=== PATIENT | male | born 1970 | race African-American/Black ===

== ENCOUNTER → 2017-03-22 | Outpatient (CLI) | payer OTHER ==
[2015-05-13 10:34] VITALS: BP 186/106
[2017-03-22 10:00] LABS: BASOPHILS % (AUTO) 0.7 % (0.2-1.0); EOSINOPHILS # (AUTO) 0.1 x10^3/uL (0.0-0.2); EOSINOPHILS % (AUTO) 2.5 % (0.9-2.9); HEMOGLOBIN 13.4 g/dL (13.5-18.0); LYMPHOCYTES # (AUTO) 1.3 X10^3/uL (1.3-2.9); LYMPHOCYTES % (AUTO) 35.2 % (21.0-51.0); MEAN CORPUSCULAR HEMOGLOBIN 31.1 pg (27.0-34.0); MEAN CORPUSCULAR HGB CONC 33.5 g/dL (33.0-35.0); MEAN CORPUSCULAR VOLUME 92.9 fL (80.0-100.0); MEAN PLATELET VOLUME 9.3 fL (7.4-11.0); MONOCYTES # (AUTO) 0.3 x10^3/uL (0.3-0.8); MONOCYTES % (AUTO) 9.3 % (0.0-13.0); NEUTROPHILS # (AUTO) 1.9 x10^3/uL (2.2-4.8); NEUTROPHILS % (AUTO) 52.3 % (42.0-75.0); PLATELET COUNT 167 X10^3/uL (150.0-450.0); RED BLOOD COUNT 4.31 X10^6/uL (4.7-6.0); RED CELL DISTRIBUTION WIDTH 12.5 % (11.6-16.5); WHITE BLOOD COUNT 3.6 X10^3/uL (3.6-10.0)
[2017-03-22 10:12] LABS: ALANINE AMINOTRANSFERASE 48 Units/L (12-78); ALBUMIN 3.5 g/dL (3.4-5.0); ALKALINE PHOSPHATASE 65 Units/L (46-116); ASPARTATE AMINO TRANSFERASE 33 Units/L (15-37); BLOOD UREA NITROGEN 17 mg/dL (7-18); CARBON DIOXIDE 29.1 mmol/L (21-32); CHLORIDE 109 mmol/L (98-107); COR NA(FOR HYPERGLY) 147 mmol/L (136-145); CREATININE 1.18 mg/dL (0.70-1.30); GLUCOSE 137 mg/dL (65-99); SODIUM 146 mmol/L (136-145); TOTAL PROTEIN 6.8 g/dL (6.4-8.2); eGFR BLACK RACES > 60 (>60); eGFR NON BLACK RACES > 60 (>60)
--- NOTE | 2017-03-22 10:37 | RAD ---
HISTORY: Preop foot surgery Study: Chest two views Comparison: July 21, 2015 Findings: The trachea is midline. The cardiac silhouette is unremarkable. 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 The lungs are clear without focal infiltrate or effusion. The bony thorax is unremarkable. IMPRESSION: 1. No acute cardiopulmonary disease. Reported By:
== END ==
LOC: LAB 09:40
PROVIDERS: ATTEND Podiatrist
DX: Z01.812 Encounter for preprocedural laboratory examination (principal); Z01.810 Encounter for preprocedural cardiovascular examination; Z01.811 Encounter for preprocedural respiratory examination
CPT/HCPCS: 36415; 71020; 80053; 85025; 93005; 93010

== ENCOUNTER 2017-12-30 20:58 | Emergency (ER) | payer OTHER ==
[2017-12-30 21:08] VITALS: BMI 30.1
[2017-12-30] MEDS ORDERED: LEVSIN/MAALOX/LIDOC VISC PO ONE (21:26)
[2017-12-30] MEDS ORDERED: LEVSIN/MAALOX/LIDOC VISC ONE (21:26)
[2017-12-30 21:36] LABS: BASOPHILS # (AUTO) 0.1 X10^3/uL (0.0-0.1); BASOPHILS % (AUTO) 1.2 % (0.2-1.0); EOSINOPHILS # (AUTO) 0.1 x10^3/uL (0.0-0.2); EOSINOPHILS % (AUTO) 2.5 % (0.9-2.9); HEMATOCRIT 39.9 % (42.0-54.0); HEMOGLOBIN 13.6 g/dL (13.5-18.0); LYMPHOCYTES # (AUTO) 2.3 X10^3/uL (1.3-2.9); LYMPHOCYTES % (AUTO) 43.6 % (21.0-51.0); MEAN CORPUSCULAR HEMOGLOBIN 31.8 pg (27.0-34.0); MEAN CORPUSCULAR HGB CONC 34.1 g/dL (33.0-35.0); MEAN PLATELET VOLUME 9.5 fL (7.4-11.0); MONOCYTES # (AUTO) 0.6 x10^3/uL (0.3-0.8); MONOCYTES % (AUTO) 11.4 % (0.0-13.0); NEUTROPHILS # (AUTO) 2.2 x10^3/uL (2.2-4.8); NEUTROPHILS % (AUTO) 41.3 % (42.0-75.0); PLATELET COUNT 172 X10^3/uL (150.0-450.0); RED BLOOD COUNT 4.29 X10^6/uL (4.7-6.0); RED CELL DISTRIBUTION WIDTH 13.2 % (11.6-16.5); WHITE BLOOD COUNT 5.3 X10^3/uL (3.6-10.0)
--- NOTE | 2017-12-30 21:36 | DR.GENAD ---
HPI - PCP Primary Care Physician: nfd - HPI Comment HPI Comment: symptoms started shortly after eating about 2 1/2 hrs ago - Complaint/Symptoms Chief Complaint:: pt states" I was eating a steak and shrimp and i started burning right here and it comes and goes" pt pointing to lt chest Self Treatment fo Chief Complaint: has had same symptoms before, has taken PeptoBismol without relief - Nurses notes reviewed Nurses Notes Review: Yes - Source History Provided: Patient - Mode of Arrival Mode of Arrival: Ambulatory - Timing Onset of Chief Complaint: 12/30/17 PMH - PMH Past Medical History: Yes (heart surgery as a baby) Past Medical History: Anemia, Angina, Coronary Artery Disease, Dyslipidemia, GERD, Hypertension Past Surgical History: Yes Surgical History: CABG/Valve Surgery Past Surgical History Comment: heat surgery as an - Family History History of Family Medical Conditions: Yes Family Medical History: Hypertension - Social History Does patient currently use any type of tobacco product: No Have you used tobacco products in the last 12 months: No Type of Tobacco Use: None Does any household member use tobacco: No Alcohol Use: None Do you use any recreational Drugs:: No Lives With: Family Lives Where: Home - infectious screening In the last 2 months have you had wt loss of >10#?: NO Have you had fever, night sweats or hemotysis?: No Have you traveled outside the country in the last 6 months?: No Isolation: Standard ROS - Review of Systems Constitutional: No Symptoms Reported. negative: Diaphoresis Eyes: No Symptoms Reported ENTM: No Symptoms Reported Respiratoy: No Symptoms Reported. negative: Short of Breath Cardiovascular: Chest Pain Gastrointestinal/Abdominal: No Symptoms Reported Genitourinary: No Symptoms Reported Neurological: No Symptoms Reported Musculoskeletal: No Symptoms Reported Integumentary: No Symptoms Reported Hematologic/Lymphatic: No Symptoms Reported Endocrine: No Symptoms Reported All Other Systems: Reviewed and Negative PE - Vital Signs Vitals: Temperature 98 F Pulse Rate 52 Respiratory Rate 18 Blood Pressure [Left Arm] 156/100 Blood Pressure [Right Arm] 186/106 Blood Pressure 150/82 O2 Sat by Pulse Oximetry 100 - General Limitations: No Limitations General Appearance: Alert, In No Apparent Distress - Head Head Exam: Normal Inspection - Eyes Eye exam: Normal Appearance - ENT ENT Exam: Normal Exam Throat Exam: Normal Inspection - Neck Neck Exam: Normal Inspection, Full ROM, Trachea Midline - Chest Chest Inspection: Normal Inspection, Symmetric Chest Wall Rise. negative: Tenderness, Rash - Respiratory Respiratory Exam: Normal Lung Sounds Bilat. negative: Chest Wall Tenderness Respiratory Exam: Bilateral Clear to Auscultation - Cardiovascular Cardiovascular Exam: Regular Rate, Normal Rhythm, Bradycardia. negative: Systolic Murmur, Diastolic Murmur, Rubs, Gallop, Clicks, JVD - Abdominal Exam Abdominal Exam: Normal Inspection, Normal Bowel Sounds, Soft. negative: Distention, Tenderness, Guarding, Rebound - Extremities Extremities Exam: Normal Inspection, Full ROM. negative: Edema - Neurologic Neurological Exam: Alert, Oriented X3 - Psychiatric Psychiatric Exam: Normal Affect, Normal Mood - Skin Skin Exam: Warm, Dry ROR - Labs Reviewed Laboratory Results Reviewed?: Yes (CK 364, CKMB, trop both normal) Result Diagrams: 12/30/17 21:15 12/30/17 21:15 Laboratory: WBC 5.3 X10^3/uL (3.6-10.0) 12/30/17 21:15 RBC 4.29 X10^6/uL (4.7-6.0) L 12/30/17 21:15 Hgb 13.6 g/dL (13.5-18.0) 12/30/17 21:15 Hct 39.9 % (42.0-54.0) L 12/30/17 21:15 MCV 93.0 fL (80.0-100.0) 12/30/17 21:15 MCH 31.8 pg (27.0-34.0) 12/30/17 21:15 MCHC 34.1 g/dL (33.0-35.0) 12/30/17 21:15 RDW 13.2 % (11.6-16.5) 12/30/17 21:15 Plt Count 172 X10^3/uL (150.0-450.0) 12/30/17 21:15 MPV 9.5 fL (7.4-11.0) 12/30/17 21:15 Neut % 41.3 % (42.0-75.0) L 12/30/17 21:15 Lymph % 43.6 % (21.0-51.0) 12/30/17 21:15 [place] % 11.4 % (0.0-13.0) 12/30/17 21:15 Eos % 2.5 % (0.9-2.9) 12/30/17 21:15 Baso % 1.2 % (0.2-1.0) H 12/30/17 21:15 Neut # 2.2 x10^3/uL (2.2-4.8) 12/30/17 21:15 Lymph # 2.3 X10^3/uL (1.3-2.9) 12/30/17 21:15 [place] # 0.6 x10^3/uL (0.3-0.8) 12/30/17 21:15 Eos # 0.1 x10^3/uL (0.0-0.2) 12/30/17 21:15 Baso # 0.1 X10^3/uL (0.0-0.1) 12/30/17 21:15 Absolute Nucleated RBC 0.1 /100WBC 12/30/17 21:15 INR Target Range - 12/30/17 21:15 INR 1.01 (0.8-1.3) 12/30/17 21:15 PTT 29.9 SECONDS (22.9-36.5) 12/30/17 21:15 PTT Comment - 12/30/17 21:15 Sodium 140 mmol/L (136-145) 12/30/17 21:15 Corrected Sodium 140 mmol/L (136-145) 12/30/17 21:15 Potassium 3.9 mmol/L (3.5-5.1) 12/30/17 21:15 Chloride 104 mmol/L (98-107) 12/30/17 21:15 Carbon Dioxide 30.3 mmol/L (21-32) 12/30/17 21:15 BUN 12 mg/dL (7-18) 12/30/17 21:15 Creatinine 1.27 mg/dL (0.70-1.30) 12/30/17 21:15 Est GFR (MDRD) Af Amer > 60 (>60) 12/30/17 21:15 Est GFR (MDRD) Non-Af > 60 (>60) 12/30/17 21:15 Glucose 112 mg/dL (65-99) H 12/30/17 21:15 Calcium 8.4 mg/dL (8.5-10.1) L 12/30/17 21:15 Corrected Calcium TNP 12/30/17 21:15 Total Bilirubin 0.30 mg/dL (0.2-1.0) 12/30/17 21:15 AST 22 Units/L (15-37) 12/30/17 21:15 ALT 40 Units/L (12-78) 12/30/17 21:15 Alkaline Phosphatase 72 Units/L (46-116) 12/30/17 21:15 Creatine Kinase 364 Units/L (39-308) H 12/30/17 21:15 CK-MB (CK-2) 3.1 ng/mL (0-4.0) 12/30/17 21:15 CK/CKMB % Calc 0.9 % (<4) 12/30/17 21:15 Troponin I 0.11 ng/mL (0-1.5) 12/30/17 21:15 Total Protein 6.9 g/dL (6.4-8.2) 12/30/17 21:15 Albumin 3.6 g/dL (3.4-5.0) 12/30/17 21:15 Globulin 3.3 g/dL (2.5-4.5) 12/30/17 21:15 Albumin/Globulin Ratio 1.1 Ratio (1.1-2.1) 12/30/17 21:15 - XRAY XRAY Interpreted by: Radiologist, Self, Both XRAY Findings: nothing acute - EKG Rate: 44 (sinus alida, nothing acute) - Diagnosis Discharge Problem: Non-cardiac chest pain - Discharge Plan Disposition: 01 HOME, SELF-CARE Condition: Stable Prescriptions: Ketorolac Tromethamine [Toradol Tab] 10 mg PO Q8H PRN #12 tab PRN Reason: Pain - Follow ups/Referrals Follow ups/Referrals: NFD,None [Primary Care Provider] - 3 days - Instructions Additional Notes - Additional Notes Additional Notes: On reexamination, I found that I could reproduce pt's symptoms by pressing on left upper chest wall. Pt reassured with normal workup , non cardiac etiology
[2017-12-30 21:48] LABS: BLOOD UREA NITROGEN 12 mg/dL (7-18); CALCIUM 8.4 mg/dL (8.5-10.1); CARBON DIOXIDE 30.3 mmol/L (21-32); CHLORIDE 104 mmol/L (98-107); COR NA(FOR HYPERGLY) 140 mmol/L (136-145); CREATININE 1.27 mg/dL (0.70-1.30); SODIUM 140 mmol/L (136-145); TROPONIN I 0.11 ng/mL (0-1.5); eGFR BLACK RACES > 60 (>60); eGFR NON BLACK RACES > 60 (>60)
[2017-12-30 21:52] LABS: ALANINE AMINOTRANSFERASE 40 Units/L (12-78); ALBUMIN 3.6 g/dL (3.4-5.0); ALKALINE PHOSPHATASE 72 Units/L (46-116); ASPARTATE AMINO TRANSFERASE 22 Units/L (15-37); CKMB % 0.9 % (<4); CREATINE KINASE 364 Units/L (39-308); CREATINE KINASE MB 3.1 ng/mL (0-4.0); TOTAL PROTEIN 6.9 g/dL (6.4-8.2)
--- NOTE | 2017-12-30 22:15 | RAD ---
Indication: Chest pain Exam: Portable chest Comparison: 03/22/2017 Findings: The heart is mildly enlarged and more prominent. There is a right-sided aortic arch which i s unchanged. No consolidation or effusion is seen. There is overlying EKG lead artifact. The bones ar e intact. Impression: Mild cardiomegaly which is more prominent . Overlying EKG lead artifact with no obvious acute abnormality seen. Reported By:
[2017-12-30] MEDS ORDERED: TORADOL 30 MG VIAL IVP ONE (22:23)
[2017-12-30] MEDS ORDERED: TORADOL 30 MG VIAL ONE (22:24)
[2017-12-30 22:52] VITALS: BP 127/86
== END 2017-12-30 22:50 | disposition home or self-care (01) ==
LOC: ER 21:14
DX: R07.89 Other chest pain (principal)
CPT/HCPCS: 36415; 71045; 80053; 82550; 82553; 84484; 85025; 85610; 85730; 93005; 93010; 96365; 96374; 99283; A4222; J1885